=== PATIENT | female | born 1965 | race Caucasian/White ===

== ENCOUNTER → 2018-02-26 11:32 | Outpatient (CLI) | payer OTHER, SELFPAY ==
[2018-02-26 11:49] LABS: Basophils Percent Auto 0.4 % (0-2); Eosinophils Percent Auto 2.1 % (2-4); Hematocrit 32.5 % (36-46); Lymphocytes Percent Auto 7.9 % (25-40); Mean Corpuscular HGB Conc 33.9 % (30-36); Mean Corpuscular Hemoglobin 36.5 PG (26-34); Mean Corpuscular Volume 107.8 fL (80-100); Monocytes Percent Auto 6.3 % (3-14); Neutrophils Absolute Auto 8100 /uL (3000-5900); Neutrophils Percent Auto 83.3 % (50-75); Platelet Count 94 X10^3/uL (150-400); Red Blood Cell Count 3.01 X10^6/uL (4.0-5.2); Red Cell Distribution Width 17.8 % (11.6-14.8); White Blood Cell Count 9.7 X10^3/uL (4.5-11.0)
[2018-02-26 11:51] LABS: Add Manual Diff / Slide Review SLIDE REVIEW
[2018-02-26 12:17] LABS: Anisocytosis 1+; Macrocytosis 1+
== END ==
PROVIDERS: PCP Internal Medicine; Visit Provider Internal Medicine
DX: D46.20 Refractory anemia with excess of blasts, unspecified (principal)
CPT/HCPCS: 36415; 85025

== ENCOUNTER → 2018-04-05 10:24 | Outpatient (CLI) | payer OTHER, SELFPAY ==
[2018-04-05 11:18] LABS: Add Manual Diff / Slide Review NO; Basophils Percent Auto 0.2 % (0-2); Eosinophils Percent Auto 1.6 % (2-4); Hematocrit 32.7 % (36-46); Hemoglobin 11.1 g/dL (12.0-16.0); Lymphocytes Percent Auto 11.2 % (25-40); Mean Corpuscular HGB Conc 33.8 % (30-36); Mean Corpuscular Hemoglobin 36.5 PG (26-34); Mean Corpuscular Volume 107.8 fL (80-100); Monocytes Percent Auto 6.9 % (3-14); Neutrophils Absolute Auto 5600 /uL (3000-5900); Neutrophils Percent Auto 80.1 % (50-75); Platelet Count 69 X10^3/uL (150-400); Red Blood Cell Count 3.03 X10^6/uL (4.0-5.2); Red Cell Distribution Width 15.6 % (11.6-14.8)
== END ==
PROVIDERS: PCP Internal Medicine; Visit Provider Internal Medicine
DX: D46.20 Refractory anemia with excess of blasts, unspecified (principal)
CPT/HCPCS: 36415; 85025

== ENCOUNTER → 2019-02-17 06:35 | Outpatient (CLI) | payer OTHER, SELFPAY ==
--- NOTE | 2019-02-17 | DI.MRI.S_ITS ---
PROCEDURE: MR LUMBAR SPINE WO CON INDICATIONS: Low back pain TECHNIQUE: Noncontrast sagittal T1 spin echo and T2 fast echo, sagittal STIR, axial T1 and T2 fast spin echo through the lumbar spine. In cases with scoliosis, additional coronal T2 fast spin echo may be performed. COMPARISON: None. FINDINGS: Image quality: Excellent. Alignment and Curvature: Straightening of the normal lordotic curvature. Bone Marrow: Marrow is of normal overall signal. No acute vertebral body compression fractures. Spinal Cord: Conus medullaris terminates at the L1-L2 level. Visualized cord demonstrates normal signal and size. Paraspinous Soft Tissues: No paravertebral masses. L1-L2: Normal appearance. L2-L3: Normal appearance. L3-L4: Normal appearance. L4-L5: Central disc protrusion and bilateral facet arthropathy. Minimal central canal narrowing and minimal partial effacement of both lateral recesses with symmetric appearance. No foraminal stenosis L5-S1: Left paracentral disc protrusion, with associated effacement of the left lateral recess, and compression of the descending left S1 nerve root. The right lateral recess appears patent. No significant central canal stenosis. No foraminal narrowing. IMPRESSION: Left paracentral disc bulge at L5-S1 which may impinge on the descending left S1 nerve root. Please correlate with clinical exam findings. No foraminal stenosis. Dictated by: Rudy Kingsley M.D. on 02/17/2019 at 8:58 Approved by: Rudy Kingsley M.D. on 02/17/2019 at 9:05
== END ==
PROVIDERS: PCP Nurse Practitioner Family; Referring Provider Internal Medicine; Visit Provider Nurse Practitioner Family
DX: M51.26 Other intervertebral disc displacement, lumbar region (principal)
CPT/HCPCS: 72148

== ENCOUNTER 2019-02-20 22:02 | Emergency (ER) | payer OTHER, SELFPAY ==
[2019-02-20 22:04] VITALS: BP 73/46; PULSE 90; RESP 16; TEMP 37.4; O2SAT 96; BMI 23.5
--- NOTE | 2019-02-20 22:32 | DI.CT.S_ITS ---
PROCEDURE: CT ABDOMEN PELVIS W CON INDICATIONS: persistant vomiting with cancer TECHNIQUE: After the administration of intravenous contrast, 5 mm thick sections acquired from the diaphragm to the symphysis. 5 mm coronal and sagittal reformats were acquired. For radiation dose reduction, the following was used: automated exposure control, adjustment of mA and/or kV according to patient size. COMPARISON: None. FINDINGS: Image quality: Excellent. ABDOMEN: Lung bases: Lung bases are clear. Heart size is normal. There is a small hiatal hernia. Solid organs: Liver is enlarged measuring 23 cm in length. There is hepatic steatosis. There is a 1.4 cm hypodensity in the left hepatic lobe. Liver is normal in size and enhancement. Gallbladder contains small gallstones. Biliary system is non dilated. Pancreas enhances normally. Spleen is mildly enlarged measuring 13 cm in length. No adrenal nodules. Kidneys demonstrate normal size and enhancement, without hydronephrosis. Peritoneum and bowel: Proximal colon loops are dilated measuring up to 6.7 cm in diameter. There is fluid with air-fluid levels within the proximal colon. Distally, there is a large amount of stool. A few colonic diverticula are present. No evidence for active diverticulitis. Small bowel loops are normal in caliber. Stomach is nondistended. No free air. There is a trace amount of free fluid. Nodes and vessels: No retroperitoneal or mesenteric adenopathy by size criteria. Aorta and inferior vena cava are normal in size. Miscellaneous: No ventral hernias. PELVIS: Genitourinary: Bladder wall thickness is normal. Miscellaneous: No inguinal hernias or adenopathy. Bones: No suspicious bony lesions. No vertebral body compression fractures. IMPRESSION: 1. Colon loops are distended and filled with fluid proximally measuring up to 6.7 cm in diameter. There is a large amount of distal colonic stool. The findings are nonspecific and may be secondary to enterocolitis or functional distal colonic obstruction. Recommend clinical correlation. 2. Mild diverticulosis without active diverticulitis. 3. Hepatosplenomegaly. 4. There is a 1.4 cm low hypodense mass in the left hepatic lobe, indeterminate. Recommend liver protocol CT or MRI for followup. 5. Cholelithiasis. 6. Small hiatal hernia. No significant discrepancy with the cnc machinist 2nd shift radiology preliminary report. Dictated by: Davian De Anda M.D. on 02/21/2019 at 7:33 Approved by: Davian De Anda M.D. on 02/21/2019 at 7:44
--- NOTE | 2019-02-20 22:39 | ED_ITS ---
HPI - Abdominal Pain General Chief Complaint: Abdominal Pain Stated Complaint: vomiting x2 days, back pain Time Seen by Provider: 02/20/19 22:25 Source: patient Mode of arrival: ambulatory Limitations: no limitations History of Present Illness HPI narrative: Patient is a 53-year-old female with history of bone marrow cancer myelodysplastic syndrome she says it is affecting her liver intake spiral and lack tone. She has been vomiting for 2 days unable to keep anything down. As she did vomit up a little bit of brown bile like stuff. She says he has been constipated for at least 4 days. No bloody bowel movements. She has diffuse abdominal pain. She is not getting treatment for anything. She denies any fever. She also has a herniated disc she was seen at [place] for back pain or she got some Valium. She says she did not like it. complaint: abdominal pain Onset (ago): day(s) Severity: moderate Migration to: no migration Associated symptoms: nausea, vomiting and constipation Related Data Home Medications Medication Instructions Recorded Confirmed albuterol sulfate [Proventil HFA] 1 puff INH BID #17 gm 03/31/13 CA/CU/VIT A/VIT C/VIT E/ZINC 1 tab PO QDAY #0 04/03/13 (ICAPS AREDS~) Garlic (GARLIC~) 400 mg PO QDAY #0 04/03/13 OMEPRAZOLE (PRILOSEC) 10 mg PO HS #0 04/03/13 Vitamin E (VITAMIN E) units PO QDAY #0 04/03/13 cholecalciferol (vitamin D3) 2,000 iu PO QDAY #0 04/03/13 [Vitamin D3] Previous Rx's Medication Instructions Recorded ibuprofen 600 mg PO Q6HP #30 04/06/13 ondansetron 4 mg PO Q6-8H PRN #10 tab 02/21/19 Allergies Allergy/AdvReac Type Severity Reaction Status Date / Time CODEINE Allergy Unknown NAUSEA Uncoded 12/22/17 11:50 PREDNISONE Allergy Unknown PUFFY AND Uncoded 12/22/17 11:50 'CRAZY' Review of Systems Review of Systems GENERAL: Denies chills, fatigue, malaise, fever, sweats, travel HEENT: Denies sinus pain, ear pain, sore throat, difficulty swallowing, neck pain RESPIRATORY: Denies dyspnea, cough, wheezing, hemoptysis, sputum. CARDIOVASCULAR: Denies chest pain, palpitations, orthopnea, edema GASTROINTESTINAL: See HPI : Denies dysuria, frequency, incontinence, hematuria, urinary retention, flank pain. MUSCULOSKELETAL: Denies weakness, joint pain, or bony pain SKIN: No rash, no erythema, no pruritus NEUROLOGIC: Denies weakness, dizziness, headache, numbness, change in speech, confusion PSYCHIATRIC: No concerning psychosocial issues. 12 point review of systems is negative except for those stated above and HPI PFSH Social History Smoking Status: Never smoker Social History Smoking Status: Never smoker Exam Initial Vital Signs Initial Vital Signs: Vital Signs Temperature 99.3 F 02/20/19 22:04 Pulse Rate 90 02/20/19 22:04 Respiratory Rate 16 02/20/19 22:04 Blood Pressure 73/46 L 02/20/19 22:04 Pulse Oximetry 96 02/20/19 22:04 GENERAL: Appears ill, weak alert and oriented x3 HEENT: Head atraumatic,EOMI, pupils reactive, face symmetric CARDIOVASCULAR: Regular rate and rhythm without murmurs, rubs or gallops. RESPIRATORY: Breath sounds equal bilaterally, no wheezes rales or rhonchi. ABDOMEN: Soft, mild tenderness epigastric. No guarding or rebound. Increased bowel sounds : No CVA tenderness EXTREMITIES: Normal range of motion, no clubbing or edema. Neurovascularly intact NEUROLOGICAL: Alert and oriented x4.Normal gait and speech. Cranial nerves II through XII grossly intact. SKIN: Warm, dry, no laceration, no petechiae, no rashes or lesions. Course Orders Ordered: ED Orders 02/20/19 22:32 CT abdomen pelvis w con Stat 02/20/19 22:40 Complete Blood Count AUTO DIFF Stat Comprehensive Metabolic Panel Stat Lactate (Lactic Acid) Stat Lipase Stat Partial Thromboplastin Time Stat Prothrombin Time INR Stat 02/21/19 00:03 US abdomen limited Stat 02/21/19 01:50 Bilirubin Conjugated Stat Bilirubin Direct Stat Discontinued Medications Sodium Chloride (Normal Saline 0.9%) 1,000 mls @ 1,000 mls/hr IV BOLUS ONE Stop: 02/20/19 23:24 Last Infusion: 02/20/19 23:58 Dose: 0 mls/hr Admin: 02/20/19 22:40 Dose: 1,000 mls/hr Sodium Chloride (Normal Saline 0.9%) 1,000 mls @ 1,000 mls/hr IV BOLUS ONE Stop: 02/21/19 00:45 Last Infusion: 02/21/19 00:47 Dose: 0 mls/hr Admin: 02/20/19 23:58 Dose: 1,000 mls/hr Sodium Chloride (Normal Saline 0.9%) 1,000 mls @ 250 mls/hr IV CONT TELMA Last Infusion: 02/21/19 07:19 Dose: 250 mls/hr Admin: 02/21/19 01:54 Dose: 250 mls/hr Magnesium Citrate (Magnesium Citrate) 300 ml PO NOW ONE Stop: 02/21/19 06:43 Last Admin: 02/21/19 06:47 Dose: 300 ml Metoclopramide HCl (Reglan) 10 mg PO NOW ONE Stop: 02/21/19 03:41 Last Admin: 02/21/19 05:02 Dose: Not Given Metoclopramide HCl (Reglan) 10 mg IV NOW ONE Stop: 02/21/19 03:42 Last Admin: 02/21/19 03:49 Dose: 10 mg Ondansetron HCl (Zofran) 4 mg IV NOW ONE Stop: 02/20/19 22:26 Last Admin: 02/20/19 22:41 Dose: 4 mg Ondansetron HCl (Zofran) 4 mg IV NOW ONE Stop: 02/21/19 00:39 Last Admin: 02/21/19 00:47 Dose: 4 mg Pantoprazole Sodium (Protonix) 40 mg IV NOW ONE Stop: 02/20/19 22:26 Last Admin: 02/20/19 22:41 Dose: 40 mg Vital Signs - 8 hr 02/21/19 00:05 02/21/19 01:03 02/21/19 02:06 Pulse Rate 77 74 75 Respiratory Rate 21 17 16 Blood Pressure Blood Pressure [Left Arm] 91/51 L 98/55 L 92/45 L Pulse Oximetry 98 98 98 02/21/19 05:56 02/21/19 06:30 02/21/19 07:20 Pulse Rate 79 78 82 Respiratory Rate 15 Blood Pressure 92/46 L Blood Pressure [Left Arm] 87/44 L 90/49 L Pulse Oximetry 96 MDM - Abdominal Pain Lab Data Attestation: I reviewed the patient's lab results. Result diagrams: 02/20/19 22:40 02/20/19 22:40 Lab Results 02/20/19 02/20/19 02/20/19 Range/Units 22:40 22:40 22:40 WBC 19.8 H (4.5-11.0) X10^3/uL RBC 3.88 L (4.0-5.2) X10^6/uL Hgb 13.2 (12.0-16.0) g/dL Hct 38.1 (36-46) % MCV 98.3 (80-100) fL MCH 33.9 (26-34) PG MCHC 34.5 (30-36) % RDW 15.3 H (11.6-14.8) % Plt Count 99 L (150-400) X10^3/uL Neut % (Auto) Not Reportable Lymph % (Auto) Not Reportable Bradley % (Auto) Not Reportable Eos % (Auto) Not Reportable Baso % (Auto) Not Reportable Lymph # (Auto) Not Reportable Bradley # (Auto) Not Reportable Baso # (Auto) Not Reportable Total Counted 100 Seg Neutrophils % 80.0 H (38-70) % Band Neutrophils % 10.0 H (3-7) % Lymphocytes % (Manual) 5.0 L (25-45) % Monocytes % (Manual) 5.0 (2-11) % Neutrophils # (Manual) 67959 H (0466-9697) /uL Platelet Estimate Decreased on smear RBC Morphology See below Anisocytosis 2+ H PT 17.9 H (10.1-12.7) SECONDS INR 1.5 H (0.9-1.3) APTT 38 H (26.4-36.2) SECONDS Sodium 141 (137-145) mmol/L Potassium 4.5 (3.4-5.1) mmol/L Chloride 96 L (98-107) mmol/L Carbon Dioxide 31 (22-32) mmol/L BUN 32 H (7-17) mg/dL Creatinine 1.20 H (0.52-1.04) mg/dL Estimated GFR 47.2 L (>60) mL/min BUN/Creatinine Ratio 26.7 H (6-22) Glucose 194 H (70-100) mg/dL Lactate (0.7-2.1) mmol/L Calcium 9.8 (8.4-10.2) mg/dL Total Bilirubin 5.9 H (0.2-1.3) mg/dL Direct Bilirubin (0.0-0.4) mg/dL Conjugated Bilirubin (0.0-0.3) md/dL AST 68 H (14-36) IU/L ALT 24 (9-52) IU/L Alkaline Phosphatase 134 H (38-126) U/L Total Protein 8.0 (6.3-8.2) g/dL Albumin 4.1 (3.5-5.0) g/dL Globulin 3.9 (1.7-4.1) g/dL Albumin/Globulin Ratio 1.1 (1.0-2.8) Lipase 48 (23-300) U/L 02/20/19 02/20/19 02/21/19 Range/Units 22:40 22:40 01:00 WBC (4.5-11.0) X10^3/uL RBC (4.0-5.2) X10^6/uL Hgb (12.0-16.0) g/dL Hct (36-46) % MCV (80-100) fL MCH (26-34) PG MCHC (30-36) % RDW (11.6-14.8) % Plt Count (150-400) X10^3/uL Neut % (Auto) Lymph % (Auto) Bradley % (Auto) Eos % (Auto) Baso % (Auto) Lymph # (Auto) Bradley # (Auto) Baso # (Auto) Total Counted Seg Neutrophils % (38-70) % Band Neutrophils % (3-7) % Lymphocytes % (Manual) (25-45) % Monocytes % (Manual) (2-11) % Neutrophils # (Manual) (5368-4073) /uL Platelet Estimate RBC Morphology Anisocytosis PT (10.1-12.7) SECONDS INR (0.9-1.3) APTT (26.4-36.2) SECONDS Sodium (137-145) mmol/L Potassium (3.4-5.1) mmol/L Chloride (98-107) mmol/L Carbon Dioxide (22-32) mmol/L BUN (7-17) mg/dL Creatinine (0.52-1.04) mg/dL Estimated GFR (>60) mL/min BUN/Creatinine Ratio (6-22) Glucose (70-100) mg/dL Lactate 2.9 H 2.7 H (0.7-2.1) mmol/L Calcium (8.4-10.2) mg/dL Total Bilirubin (0.2-1.3) mg/dL Direct Bilirubin 1.4 H (0.0-0.4) mg/dL Conjugated Bilirubin 0.2 (0.0-0.3) md/dL AST (14-36) IU/L ALT (9-52) IU/L Alkaline Phosphatase (38-126) U/L Total Protein (6.3-8.2) g/dL Albumin (3.5-5.0) g/dL Globulin (1.7-4.1) g/dL Albumin/Globulin Ratio (1.0-2.8) Lipase (23-300) U/L Imaging Data CT scan - abdomen: Radiologist's impression: heavy equipment technician report: The colon is distended approximately, filled with fluid and demonstrates pericolonic venous engorgement. Etiologic is indeterminate. Indeterminate liver lesions at segments 3 and along gallbladder fossa. Consider malignancy. Cholelithiasis. Hepatosplenomegaly. US - abdomen: Radiologist's impression: heavy equipment technician report: Abnormal gallbladder. Acute or chronic cholecystitis are possibilities. Left liver hyper echogenic lesion corresponding with CT abnormality could be a hemangioma. This is not definitive examination and dynamic contrast enhanced CT or MRI can be performed as outpatient. Poorly defined slightly hyper echogenic area along the gallbladder fossa as indeterminate. This may correspond with abnormality seen on CT. MDM Narrative Medical decision making narrative: The patient states that her normal blood pressure is never above 100 in usually in the 90s. Blood pressure did improve to her normal after some IV fluids. CT did show some cholelithiasis and she has elevated bilirubin of 5.9. She has minimally elevated liver enzymes and no right upper quadrant pain. She states that her bilirubin has been as high as 11 before thought to be due to her myelodysplastic syndrome. She also says that her liver is sort of failing and that is why she is on spironolactone. None the less ultrasound indicated to rule out any common bile duct stone. Altered sound does show cholelithiasis normal common bile duct. 1:35am I discussed case with surgery Dr. Ramírez, who states this is unlikely common bile duct stone. At this time certainly no surgical intervention. The patient is still feeling nauseated but she actually has not vomited he has now had 2 doses of Zofran. Discussed observation versus discharge home. Patient would like to wait and see how she feels. Patient started vomiting again given Reglan. 5:30 a.m. patient is sleeping no longer vomiting or nauseated Discharge Plan Departure Patient Disposition: Home Clinical Impression: Elevated bilirubin Vomiting Qualifiers: Vomiting type: bilious vomiting Nausea presence: with nausea Qualified Code(s): R11.14 - Bilious vomiting Discharge Date/Time: 02/21/19 07:22 Interventions: ED Discharge Assessment Last Done: 02/21/19 07:20 Instructions: DI for Vomiting -- Adult Activity Restrictions/Additional Instructions: *You have been diagnosed with vomiting *What to do: You also have an elevated bilirubin. This may be related to your disease we did look for a gallstone you do have gallstones however this is unlikely causing her persistent vomiting. Strongly recommended that he do not take any sort of laxative or stool softener 4 year constipation and tell your vomiting been controlled you are able to take in fluids for up to 24 hours *Continue to take medications as directed Zofran 4 mg every 6-8 hours if needed for nausea or vomiting Magnesium citrate 150 mL every 12 hours x2 if needed for constipation *Follow up with your primary care provider in 2-3 days *Return to ER if you should have persistent vomiting, increased abdominal pain, inability to tolerate fluids or any new, worsening or concerning symptoms Prescriptions: New ondansetron 4 mg tablet,disintegrating 4 mg PO Q6-8H PRN (Reason: nausea and vomiting) Qty: 10 RF: 0 No Action albuterol sulfate [Proventil HFA] 90 MCG/PUFF HFA aerosol inhaler 1 puff INH BID Qty: 17 RF: 0 cholecalciferol (vitamin D3) [Vitamin D3] 2,000 UNIT capsule 2,000 iu PO QDAY Qty: 0 RF: 0 CA/CU/VIT A/VIT C/VIT E/ZINC (ICAPS AREDS~) 1 tab PO QDAY Qty: 0 RF: 0 Garlic (GARLIC~) 400 mg PO QDAY Qty: 0 RF: 0 Vitamin E (VITAMIN E) PO QDAY Qty: 0 RF: 0 OMEPRAZOLE (PRILOSEC) 10 mg PO HS Qty: 0 RF: 0 ibuprofen 600 MG tablet 600 mg PO Q6HP Qty: 30 RF: 0 Referrals: Jordyn Muse ARNP [Primary Care Provider] -
[2019-02-20] MEDS: SODIUM CHLORIDE 0.9% 1,000 ML 1000 ML IV ×2 (22:40→23:58)
[2019-02-20] MEDS: ONDANSETRON 4 MG/2 ML INJ IV (22:41)
[2019-02-20] MEDS: PANTOPRAZOLE 40 MG VIAL IV (22:41)
[2019-02-20 22:49] LABS: Hematocrit 38.1 % (36-46); Hemoglobin 13.2 g/dL (12.0-16.0); Mean Corpuscular HGB Conc 34.5 % (30-36); Mean Corpuscular Hemoglobin 33.9 PG (26-34); Mean Corpuscular Volume 98.3 fL (80-100); Platelet Count 99 X10^3/uL (150-400); Red Blood Cell Count 3.88 X10^6/uL (4.0-5.2); Red Cell Distribution Width 15.3 % (11.6-14.8); White Blood Cell Count 19.8 X10^3/uL (4.5-11.0)
[2019-02-20 22:50] LABS: Add Manual Diff / Slide Review YES
[2019-02-20 22:54] LABS: INR 1.5 (0.9-1.3); Prothrombin Time 17.9 SECONDS (10.1-12.7)
[2019-02-20 22:57] LABS: PTT Partial Thromboplastin Tim 38 SECONDS (26.4-36.2)
[2019-02-20 23:00] LABS: Lactate (Lactic Acid) 2.9 mmol/L (0.7-2.1)
[2019-02-20 23:01] LABS: Alanine Aminotransferase 24 IU/L (9-52); Albumin 4.1 g/dL (3.5-5.0); Albumin Globulin Ratio 1.1 (1.0-2.8); Alkaline Phosphatase 134 U/L (38-126); Aspartate Aminotransferase 68 IU/L (14-36); BUN Creatinine Ratio 26.7 (6-22); Bilirubin Total 5.9 mg/dL (0.2-1.3); Blood Urea Nitrogen 32 mg/dL (7-17); Calcium 9.8 mg/dL (8.4-10.2); Carbon Dioxide 31 mmol/L (22-32); Chloride 96 mmol/L (98-107); Estimated Glomerular Filt Rate 47.2 mL/min (>60); Globulin 3.9 g/dL (1.7-4.1); Glucose 194 mg/dL (70-100); HEMOLYSIS < 15 (0-50); Lipase 48 U/L (23-300); Potassium 4.5 mmol/L (3.4-5.1); Sodium 141 mmol/L (137-145)
[2019-02-20 23:08] VITALS: BP 93/55; PULSE 88; RESP 16; O2SAT 98
[2019-02-20 23:27] VITALS: BP 97/50; PULSE 78; RESP 17; O2SAT 100
--- NOTE | 2019-02-21 00:03 | DI.US.S_ITS ---
PROCEDURE: US ABDOMEN LIMITED INDICATIONS: ELEVATED BILIRUBIN WITH VOMITING TECHNIQUE: Real-time focused scanning was performed of the abdomen, with image documentation. COMPARISON: [facility], CT, CT ABDOMEN PELVIS W CON, 02/20/2019, 23:07. FINDINGS: There are gallstones. The gallbladder wall thickened measuring 5 mm. There is trace pericholecystic fluid. The sonographic Venegas's sign was negative. Liver demonstrates heterogeneous echotexture. There is a 2.7 x 1.4 x 2.8 cm hyperechoic mass hepatic lobe. The ill-defined hyperechoic area in the right hepatic lobe near the gallbladder fossa measures 3.6 x 2.7 x 2.2 cm. Smaller hyperechoic masses in May BE present. IMPRESSION: 1. Cholelithiasis. There is collateral thickening and trace pericholecystic fluid suspicious for acute cholecystitis. 2. Liver demonstrates heterogeneous echotexture. There are multiple hyperechoic masses. Recommend CT or MRI liver protocol for further evaluation. No significant discrepancy with the supervisor incising radiology preliminary report. Dictated by: Davian De Anda M.D. on 02/21/2019 at 9:22 Approved by: Davian De Anda M.D. on 02/21/2019 at 9:33
[2019-02-21 00:05] VITALS: BP 91/51; PULSE 77; RESP 21; O2SAT 98
[2019-02-21 00:43] LABS: Reflexed Lactate in 2 Hours Y
[2019-02-21] MEDS: ONDANSETRON 4 MG/2 ML INJ IV (00:47)
[2019-02-21 01:03] VITALS: BP 98/55; PULSE 74; RESP 17; O2SAT 98
[2019-02-21 01:18] LABS: Lactate 2HR (Lactic Acid Rflx) 2.7 mmol/L (0.7-2.1)
[2019-02-21 01:33] LABS: Neutrophils Absolute Manual 17820 /uL (3000-5900); Total Cells Counted 100
[2019-02-21 01:34] LABS: Anisocytosis 2+; Platelet Estimate Decreased on smear
[2019-02-21] MEDS: SODIUM CHLORIDE 0.9% 1,000 ML 250 ML IV (01:54)
[2019-02-21 02:06] VITALS: BP 92/45; PULSE 75; RESP 16; O2SAT 98
[2019-02-21 02:08] LABS: Bilirubin Conjugated 0.2 md/dL (0.0-0.3); Bilirubin Direct 1.4 mg/dL (0.0-0.4)
[2019-02-21] MEDS: METOCLOPRAMIDE 10 MG/2 ML INJ IV (03:49)
[2019-02-21 05:56] VITALS: BP 87/44; PULSE 79
[2019-02-21 06:30] VITALS: BP 90/49; PULSE 78
[2019-02-21] MEDS: MAGNESIUM CITRATE 300 ML SOLUTION PO (06:47)
[2019-02-21 07:20] VITALS: BP 92/46; PULSE 82; RESP 15; O2SAT 96
== END 2019-02-21 07:22 | disposition home or self-care (01) ==
PROVIDERS: Emergency Provider Emergency Medicine; PCP Nurse Practitioner Family
DX: R17 Unspecified jaundice (principal); R11.14 Bilious vomiting
CPT/HCPCS: 36415; 36591; 74177; 76705; 80053; 82248; 83605; 83690; 85025; 85610; 85730; 96361; 96374; 96375; 96376; 99284; 99285; C9113; J2405; J2765; Q9967